=== PATIENT | male | born 2000 | race African-American/Black ===

== ENCOUNTER → 2018-08-18 | Outpatient (CLI) | payer OTHER | LOC: COL.RAD 15:07 | DX: K11.8 Other diseases of salivary glands (principal); R22.42 Localized swelling, mass and lump, left lower limb ==

== ENCOUNTER → 2018-12-24 | Outpatient (CLI) | payer OTHER | LOC: COL.RAD 13:29 | DX: Q85.00 Neurofibromatosis, unspecified (principal); R53.83 Other fatigue | CPT/HCPCS: A9585 ==

== ENCOUNTER → 2020-06-20 | Outpatient (CLI) | payer OTHER | LOC: COL.RAD 10:06 | DX: Q85.00 Neurofibromatosis, unspecified (principal) ==

== ENCOUNTER 2021-07-27 22:06 | Emergency (ER) | payer SELFPAY ==
[~2021-07-27] VITALS: Ht 180.3 cm; Wt 88.6 kg
[2021-07-28 01:32] VITALS: BP 123/78; PULSE 54; TEMP 98
== END 2021-07-28 01:31 | disposition home or self-care (01) ==
LOC: COL.ER 22:06
DX: S09.90XA Unspecified injury of head, initial encounter (principal); S00.03XA Contusion of scalp, initial encounter; M54.2 Cervicalgia; V48.5XXA Car driver injured in noncollision transport accident in traffic accident, initial encounter

== ENCOUNTER → 2021-08-16 | Outpatient (CLI) | payer OTHER | LOC: COL.RAD 10:23 | DX: M46.1 Sacroiliitis, not elsewhere classified (principal); Q85.00 Neurofibromatosis, unspecified | CPT/HCPCS: A9575 ==

== ENCOUNTER → 2022-11-21 | Outpatient (CLI) | payer OTHER | LOC: COL.RAD 07:16 | DX: Q85.00 Neurofibromatosis, unspecified (principal) ==